=== PATIENT | female | born 1960 | race Caucasian/White ===

== ENCOUNTER 2016-06-03 15:38 | Emergency (ER) | payer BC ==
[~2016-06-03] VITALS: Ht 167.6 cm; Wt 78.8 kg
[~2016-06-03 15:38] MED LIST: ALBUAER19 INH; ASPEC325 PO; FLUT0.0529 NAE; HYDR-5688 PO; ONDA8TAB7 PO; OXYSR10 PO; ZYRTEC OTC PO
[2016-06-03 15:48] VITALS: Ht 167.6 cm; Wt 78.8 kg
[2016-06-03] MEDS ORDERED: RABIES VACCINE (IMOVAX) HUMAN DIPL CELL 2.5 INTER.UNIT/ML SYR IM. ONE (16:45)
[2016-06-03 17:24] VITALS: BP 152/101; PULSE 84; TEMP 36.5; O2SAT 97
--- NOTE | 2016-06-03 21:35 | EMERGENCY ROOM VISIT NOTE ---
ED Visit Note First contact with patient: 16:19 Chief complaint: Rabies exposure HPI: This 55-year-old white female presents for evaluation of rabies exposure. She has a chicken coop and states there was a raccoon within the chicken coop. It did kill a chicken as well as damaged many eggs. She skidded out of the chicken coop and later trapped the animal. It was dispatched by the [employer] and tested. She was notified that it was positive for rabies. This was 6 days ago. She was recommended to have vaccination and reports today for this. Her daughter accompanies her today with the same exposure. Patient denies any symptoms. No other complaints. Review of systems: REVIEW OF SYSTEM: HEENT: No dizziness, visual problems, hearing loss, or tinnitus. There is no difficulty swallowing and no oral lesions are present. PULMONARY: No cough, shortness of breath, sputum production or hemoptysis. CARDIOVASCULAR: No chest pain, palpitations, shortness of breath or peripheral edema. GASTROINTESTINAL: No diarrhea, constipation, nausea, vomiting, or abdominal pain. GENITOURINARY: No dysuria, frequency, urgency or nocturia. NEUROLOGIC: No weakness, muscle tenderness, epilepsy or history of neurological problems. No history of chronic headaches. MUSCULOSKELETAL: No history of joint tenderness/swelling. Positive history of arthritis and arthralgias. SKIN: No rashes or lesions. PSYCHIATRIC: No history of depression or mental illness. ENDOCRINE: No history of diabetes or abnormal hair growth. Surgical history: None Medical history: Significant for osteoarthritis, hypothyroidism, asthma Family history: Noncontributory. Current medications: Filed in patient's chart Allergies: Keflex Social history: Employed. No tobacco use. Vitals: Afebrile. Reviewed and filed in patient's chart General: Well-developed, well-nourished, middle-aged white female, in no acute distress. She is sitting on a bed. Alert and oriented. Skin:Warm and dry with good turgor. No rashes or lesions. No ecchymosis or erythema. The patient is not diaphoretic. No abrasions. She does have some dry cracks and fissures on her fingers. Musculoskeletal: Full motion of the upper extremities without discomfort. Impression: Rabies exposure. Plan: Patient was educated regarding today's findings. Our pharmacy has run out of HRIG due to multiple first exposures yesterday and today. No additional medication is available till Sunday. Her last day for the 7 day window for HRIG is tomorrow. I did call [facility] and they do have the immunoglobulin available. Perception was provided for the patient to receive administration there. They were given Imovax 1 ML IM here. Patient was monitored for 20 minutes. No adverse changes were noted. Patient was discharged with instructions to follow-up at the next scheduled injection. Tylenol as needed for any discomfort. Benadryl as needed for any itch. Return to the ER for any signs of allergic reaction. Current/Historical Medications Scheduled Amlodipine (Norvasc), 5 MG PO DAILY Aspirin (Aspirin Ec), 81 MG PO DAILY Gabapentin (Neurontin), 900 MG PO TID Hydrochlorothiazide (Hctz), 25 MG PO DAILY Hydrocodone/Acetaminophen 5MG/325MG ([place] 5MG/325MG), 1 TABLET PO HS Levothyroxine Sodium (Synthroid), 125 MCG PO DAILY Lisinopril (Zestril), 20 MG PO DAILY Meloxicam (Mobic), 15 MG PO DAILY Multiple Vitamin (Multivitamin), 1 TAB PO DAILY Nortriptyline Hcl (Pamelor), 100 MG PO HS Scheduled PRN Albuterol Inhaler (Ventolin Inhaler), 2 PUFFS INH QID PRN for SOB/Wheezing Cetirizine (Zyrtec), 10 MG PO DAILY PRN for Allergy Symptoms Fluticasone Propionate (Nasal) (Flonase), 2 SPRAYS KELSEY DAILY PRN for Allergy Symptoms Allergies Coded Allergies: Cephalexin (Verified Allergy, Intermediate, RASH, 07/18/13) Vital Signs Date Time Temp Pulse Resp B/P Pulse Ox O2 Delivery O2 Flow Rate FiO2 06/03/16 17:24 36.5 84 18 152/101 97 06/03/16 17:11 84 18 152/101 97 Room Air 06/03/16 15:48 36.5 95 18 156/95 97 Room Air Medications Administered Medications (Trade) Dose Ordered Sig/Oly Route Start Time Stop Time Status Last Admin Dose Admin Rabies Vaccine Human Diploid Cell (Imovax Rabies) 2.5 interunit ONCE ONCE IM. 06/03/16 16:45 06/03/16 16:46 DC 06/03/16 17:04 2.5 INTERUNIT Departure Information Impression Primary Impression: Rabies exposure Dispostion Home / Self-Care Condition GOOD Forms WORK / SCHOOL INSTRUCTIONS, HOME CARE DOCUMENTATION FORM, MOTRIN USE, TYLENOL USE, IMPORTANT VISIT INFORMATION Patient Instructions My [facility], Rabies Immune Globulin Human Solution for injection Additional Instructions return on Jun 06, , and Jun 24, for Imovax injections. follow up with your PCP as needed. Tylenol and Motrin every 6 hours as needed for mild discomfort/soreness
[2016-06-17] MEDS ORDERED: LISI-725 PO (12:08)
[2016-06-17] MEDS ORDERED: LEVO125T72 PO (12:08)
[2016-06-17] MEDS ORDERED: MULTTAB58 PO (12:08)
[2016-06-17] MEDS ORDERED: MELO15TA4 PO (12:08)
[2016-06-17] MEDS ORDERED: AMLO-110 PO (12:08)
[2016-06-17] MEDS ORDERED: HYDR25TA4 PO (12:08)
[2016-06-17] MEDS ORDERED: VNTHFA/IN INH (12:10)
[2016-06-17] MEDS ORDERED: FLUT0.15 NAE (12:10)
== END 2016-06-03 17:25 | disposition home or self-care (01) ==
LOC: C.EDB 15:39 → C.EDD 17:25
DX: Z20.3 Contact with and (suspected) exposure to rabies (principal); E03.9 Hypothyroidism, unspecified; J45.909 Unspecified asthma, uncomplicated; Z79.899 Other long term (current) drug therapy; Z79.82 Long term (current) use of aspirin

== ENCOUNTER 2016-06-06 11:55 | Emergency (ER) | payer BC ==
[~2016-06-06] VITALS: Ht 168.9 cm; Wt 79.2 kg
[~2016-06-06 11:55] MED LIST changes: -ASPEC325 PO; -HYDR-5688 PO; -ONDA8TAB7 PO; -OXYSR10 PO; -ZYRTEC OTC PO
[2016-06-06 11:59] VITALS: BP 140/83; PULSE 87; TEMP 36.7; O2SAT 97; Ht 168.9 cm; Wt 79.2 kg
[2016-06-06] MEDS ORDERED: RABIES VACCINE (IMOVAX) HUMAN DIPL CELL 2.5 INTER.UNIT/ML SYR IM. ONE (12:30)
--- NOTE | 2016-06-06 12:38 | EMERGENCY ROOM VISIT NOTE ---
ED Visit Note First contact with patient: 12:08 Chief Complaint: Rabies Return Visit History of Present Illness: This patient is a 55-year-old female who presents to the Emergency Department ambulatory for their second Rabies Vaccination Injections. The patient reports that they had no reaction to previous injection. Patient denies the development of any fevers, chills, sweats, or URI symptoms. The patient states that she was not able to receive the immunoglobulin at this facility at her last visit, but she did go to the [facility] later that day and received the immunoglobulin. Medications: Unchanged from previous visit. Allergies: Cephalexin PMH: Unchanged from previous visit. SHx: The patient lives locally with family. ROS: All pertinent positive and negative review of systems are appropriately documented in the History of Present Illness. Physical Exam: VITAL SIGNS - Vital signs and Nursing Notes were reviewed. GENERAL -this is a 55-year-old female, well-developed, well-nourished, and in no acute distress. SKIN - Without rashes or lesions. CARDIAC - RRR with normal S1 & S2. No murmurs, rubs, or gallops appreciated. RESPIRATORY - Clear to auscultation bilaterally. No wheezes, rales, or rhonchi appreciated. NEURO - Patient is A&Ox3 and communicates appropriately with the provider. ED Course: Previous ED visit note was reviewed by myself prior to patient evaluation. I did confirm that the patient was here on the appropriate day. Patient reports no reaction to the previous injection(s). Patient received 2.5 units of Imovax intramuscularly. Patient was observed in the Emergency Department for greater than 20 minutes prior to discharge without signs of reaction. Patient was educated on worrisome symptoms for return visit to the Emergency Department. Patient discharged to home with the intent for follow-up in the Emergency Department as scheduled for the remainder of their injections. Impression: Rabies Prophylaxis Discharge Instructions: You were seen in the Emergency Department today for your Rabies Prophylaxis Injection. You should continue to follow the Discharge Instructions outlined for you in your initial Emergency Department visit. For pain or fever control, you can use the following nktv-pnz-rckwiot medicines (if >12 yo): - Regular strength (325mg/tab) Tylenol (acetaminophen) 2 tabs every 4-6 hours as needed. Do not exceed 12 tablets in a 24 hour period. Avoid taking more than 4 grams (4000 mg) of Tylenol per day. This includes any other sources of acetaminophen you may take on a regular basis. - Regular strength (200 mg/tab) Advil (ibuprofen) 1-2 tabs every 4-6 hours as needed. Do not exceed a dose of 3200 mg per day. Return to the emergency department if your symptoms worsen despite treatment course outlined above. Current/Historical Medications Scheduled Albuterol Hfa (Ventolin Hfa), 2-4 PUFFS INH Q6H Amlodipine (Norvasc), 5 MG PO DAILY Aspirin (Aspirin Ec), 81 MG PO DAILY Gabapentin (Neurontin), 900 MG PO TID Hydrochlorothiazide (Hctz), 25 MG PO DAILY Hydrocodone/Acetaminophen 5MG/325MG ([place] 5MG/325MG), 1 TABLET PO HS Levothyroxine Sodium (Synthroid), 125 MCG PO DAILY Lisinopril (Zestril), 20 MG PO DAILY Meloxicam (Mobic), 15 MG PO DAILY Multiple Vitamin (Multivitamin), 1 TAB PO DAILY Nortriptyline Hcl (Pamelor), 100 MG PO HS Scheduled PRN Cetirizine (Zyrtec), 10 MG PO DAILY PRN for Allergy Symptoms Miscellaneous Medications Fluticasone Propionate (Nasal) (Flonase Allergy Relief) Allergies Coded Allergies: Cephalexin (Verified Allergy, Intermediate, RASH, 06/06/16) Vital Signs Date Time Temp Pulse Resp B/P Pulse Ox O2 Delivery O2 Flow Rate FiO2 06/06/16 11:59 36.7 87 17 140/83 97 Room Air Medications Administered Medications (Trade) Dose Ordered Sig/Oly Route Start Time Stop Time Status Last Admin Dose Admin Rabies Vaccine Human Diploid Cell (Imovax Rabies) 2.5 interunit ONCE ONCE IM. 06/06/16 12:30 06/06/16 12:31 DC 06/06/16 12:44 2.5 INTERUNIT Departure Information Impression Primary Impression: Rabies, need for prophylactic vaccination against Dispostion Home / Self-Care Condition GOOD Referrals RV. Mullins MD (PCP) Patient Instructions My [facility] Additional Instructions You were seen in the Emergency Department today for your Rabies Prophylaxis Injection. You should continue to follow the Discharge Instructions outlined for you in your initial Emergency Department visit. For pain or fever control, you can use the following bycz-gjd-[id number] medicines (if >12 yo): - Regular strength (325mg/tab) Tylenol (acetaminophen) 2 tabs every 4-6 hours as needed. Do not exceed 12 tablets in a 24 hour period. Avoid taking more than 4 grams (4000 mg) of Tylenol per day. This includes any other sources of acetaminophen you may take on a regular basis. - Regular strength (200 mg/tab) Advil (ibuprofen) 1-2 tabs every 4-6 hours as needed. Do not exceed a dose of 3200 mg per day. Return to the emergency department if your symptoms worsen despite treatment course outlined above.
[2016-06-17] MEDS ORDERED: LISI-725 PO (12:08)
[2016-06-17] MEDS ORDERED: MELO15TA4 PO (12:08)
[2016-06-17] MEDS ORDERED: LEVO125T72 PO (12:08)
[2016-06-17] MEDS ORDERED: AMLO-110 PO (12:08)
[2016-06-17] MEDS ORDERED: MULTTAB58 PO (12:08)
[2016-06-17] MEDS ORDERED: HYDR25TA4 PO (12:08)
[2016-06-17] MEDS ORDERED: FLUT0.15 NAE (12:10)
[2016-06-17] MEDS ORDERED: VNTHFA/IN INH (12:10)
== END 2016-06-06 12:50 | disposition home or self-care (01) ==
LOC: C.EDB 11:57 → C.EDD 12:50
DX: Z23 Encounter for immunization (principal); Z20.3 Contact with and (suspected) exposure to rabies

== ENCOUNTER 2016-06-10 15:01 | Emergency (ER) | payer BC ==
[~2016-06-10] VITALS: Ht 167.6 cm; Wt 80.5 kg
[2016-06-10 15:05] VITALS: BP 133/84; PULSE 80; TEMP 36.6; O2SAT 99; Ht 167.6 cm; Wt 80.5 kg
--- NOTE | 2016-06-10 15:28 | EMERGENCY ROOM VISIT NOTE ---
ED Visit Note First contact with patient: 15:08 CHIEF COMPLAINT: Need third rabies vaccine HISTORY OF PRESENT ILLNESS: This 55-year-old female presents the ER for her third rabies vaccine. The patient was exposed to a chicken was killed by a rabid raccoon. The patient denied any problems with her prior vaccines. REVIEW OF SYSTEMS: 6 system review was performed and was negative unless stated otherwise in history of present illness. PMH: The patient is healthy; hypertension, hypothyroidism, peripheral neuropathy SOCIAL HISTORY: Patient denies any tobacco or alcohol use PHYSICAL EXAM: Vital Signs: Were reviewed Reviewed Nurse's notes. GEN.: 55-year -old female appears in no acute distress. MENTAL Status: Alert and oriented 3. EMERGENCY DEPARTMENT COURSE: The patient was evaluated. The patient was given Imovax IM. The patient was discharged home in stable condition DIAGNOSIS: Post exposure rabies prophylaxis DISCHARGE INSTRUCTIONS: Return to the ER in 7 days for final rabies vaccine Current/Historical Medications Scheduled Amlodipine (Norvasc), 5 MG PO DAILY Aspirin (Aspirin Ec), 81 MG PO DAILY Gabapentin (Neurontin), 900 MG PO TID Hydrochlorothiazide (Hctz), 25 MG PO DAILY Hydrocodone/Acetaminophen 5MG/325MG ([place] 5MG/325MG), 1 TABLET PO HS Levothyroxine Sodium (Synthroid), 125 MCG PO DAILY Lisinopril (Zestril), 20 MG PO DAILY Meloxicam (Mobic), 15 MG PO DAILY Multiple Vitamin (Multivitamin), 1 TAB PO DAILY Nortriptyline Hcl (Pamelor), 100 MG PO HS Scheduled PRN Albuterol Hfa (Ventolin Hfa), 2-4 PUFFS INH Q6H PRN for Shortness of Breath Cetirizine (Zyrtec), 10 MG PO DAILY PRN for Allergy Symptoms Miscellaneous Medications Fluticasone Propionate (Nasal) (Flonase Allergy Relief) Allergies Coded Allergies: Cephalexin (Verified Allergy, Intermediate, RASH, 06/06/16) Vital Signs Date Time Temp Pulse Resp B/P Pulse Ox O2 Delivery O2 Flow Rate FiO2 06/10/16 15:05 36.6 80 18 133/84 99 Departure Information Referrals RV. Mullins MD (PCP) Patient Instructions My [facility]
[2016-06-10] MEDS ORDERED: RABIES VACCINE (IMOVAX) HUMAN DIPL CELL 2.5 INTER.UNIT/ML SYR IM. ONE (15:30)
[2016-06-17] MEDS ORDERED: LEVO125T72 PO (12:08)
[2016-06-17] MEDS ORDERED: MELO15TA4 PO (12:08)
[2016-06-17] MEDS ORDERED: MULTTAB58 PO (12:08)
[2016-06-17] MEDS ORDERED: AMLO-110 PO (12:08)
[2016-06-17] MEDS ORDERED: HYDR25TA4 PO (12:08)
[2016-06-17] MEDS ORDERED: LISI-725 PO (12:08)
[2016-06-17] MEDS ORDERED: VNTHFA/IN INH (12:10)
[2016-06-17] MEDS ORDERED: FLUT0.15 NAE (12:10)
== END 2016-06-10 15:34 | disposition home or self-care (01) ==
LOC: C.EDB 15:02 → C.EDD 15:34
DX: Z23 Encounter for immunization (principal); Z20.3 Contact with and (suspected) exposure to rabies; I10 Essential (primary) hypertension; E03.9 Hypothyroidism, unspecified; Z79.82 Long term (current) use of aspirin; Z79.899 Other long term (current) drug therapy; Z88.8 Allergy status to other drugs, medicaments and biological substances

== ENCOUNTER 2016-06-17 15:43 | Emergency (ER) | payer BC ==
[~2016-06-17] VITALS: Ht 167.6 cm; Wt 79.7 kg
[~2016-06-17 15:43] MED LIST changes: -ALBUAER19 INH; +AMLO-110 PO; -FLUT0.0529 NAE; +FLUT0.15 NAE; +HYDR25TA4 PO; +LEVO125T72 PO; +LISI-725 PO; +MELO15TA4 PO; +MULTTAB58 PO; +VNTHFA/IN INH
[2016-06-17 15:45] VITALS: BP 150/94; PULSE 98; TEMP 36.5; O2SAT 97; Ht 167.6 cm; Wt 79.7 kg
[2016-06-17] MEDS ORDERED: RABIES VACCINE (IMOVAX) HUMAN DIPL CELL 2.5 INTER.UNIT/ML SYR IM. ONE (16:00)
--- NOTE | 2016-06-17 16:13 | EMERGENCY ROOM VISIT NOTE ---
ED Visit Note First contact with patient: 15:47 Chief Complaint: Rabies Return Visit History of Present Illness: This patient is a 55-year-old female who presents to the Emergency Department ambulatory for their fourth and final Rabies Vaccination Injections. The patient reports that they had no reaction to previous injection. Patient denies the development of any fevers, chills, sweats, or URI symptoms. Medications: Unchanged from previous visit. Allergies: Cephalexin PMH: Unchanged from previous visit. SHx: The patient lives locally with family. ROS: All pertinent positive and negative review of systems are appropriately documented in the History of Present Illness. Physical Exam: VITAL SIGNS - Vital signs and Nursing Notes were reviewed. GENERAL -this is a 55-year-old female, well-developed, well-nourished, and in no acute distress. SKIN - Without rashes or lesions. CARDIAC - RRR with normal S1 & S2. No murmurs, rubs, or gallops appreciated. RESPIRATORY - Clear to auscultation bilaterally. No wheezes, rales, or rhonchi appreciated. NEURO - Patient is A&Ox3 and communicates appropriately with the provider. ED Course: Previous ED visit note was reviewed by myself prior to patient evaluation. Patient reports no reaction to the previous injection(s). Patient received 2.5 units of Imovax intramuscularly. Patient was observed in the Emergency Department for greater than 20 minutes prior to discharge without signs of reaction. Patient was educated on worrisome symptoms for return visit to the Emergency Department. Patient discharged to home with the intent for follow-up in the Emergency Department as scheduled for the remainder of their injections. Impression: Rabies Prophylaxis Discharge Instructions: You were seen in the Emergency Department today for your final Rabies Prophylaxis Injection. For pain or fever control, you can use the following hmrl-nfj-ocwxmla medicines (if >12 yo): - Regular strength (325mg/tab) Tylenol (acetaminophen) 2 tabs every 4-6 hours as needed. Do not exceed 12 tablets in a 24 hour period. Avoid taking more than 4 grams (4000 mg) of Tylenol per day. This includes any other sources of acetaminophen you may take on a regular basis. - Regular strength (200 mg/tab) Advil (ibuprofen) 1-2 tabs every 4-6 hours as needed. Do not exceed a dose of 3200 mg per day. Return to the emergency department if your symptoms worsen despite treatment course outlined above. Current/Historical Medications Scheduled Amlodipine (Norvasc), 5 MG PO DAILY Aspirin (Aspirin Ec), 81 MG PO DAILY Gabapentin (Neurontin), 900 MG PO TID Hydrochlorothiazide (Hctz), 25 MG PO DAILY Hydrocodone/Acetaminophen 5MG/325MG ([place] 5MG/325MG), 1 TABLET PO HS Levothyroxine Sodium (Synthroid), 125 MCG PO DAILY Lisinopril (Zestril), 20 MG PO DAILY Meloxicam (Mobic), 15 MG PO DAILY Multiple Vitamin (Multivitamin), 1 TAB PO DAILY Nortriptyline Hcl (Pamelor), 100 MG PO HS Scheduled PRN Albuterol Hfa (Ventolin Hfa), 2-4 PUFFS INH Q6H PRN for Shortness of Breath Cetirizine (Zyrtec), 10 MG PO DAILY PRN for Allergy Symptoms Miscellaneous Medications Fluticasone Propionate (Nasal) (Flonase Allergy Relief) Allergies Coded Allergies: Cephalexin (Verified Allergy, Intermediate, RASH, 06/06/16) Vital Signs Date Time Temp Pulse Resp B/P Pulse Ox O2 Delivery O2 Flow Rate FiO2 06/17/16 15:45 36.5 98 18 150/94 97 Room Air Departure Information Impression Primary Impression: Rabies, need for prophylactic vaccination against Dispostion Home / Self-Care Condition GOOD Referrals RV. Mullins MD (PCP) Forms WORK / SCHOOL INSTRUCTIONS, HOME CARE DOCUMENTATION FORM, IMPORTANT VISIT INFORMATION Patient Instructions My [facility] Additional Instructions You were seen in the Emergency Department today for your final Rabies Prophylaxis Injection. For pain or fever control, you can use the following clxd-yhy-gojwfxv medicines (if >12 yo): - Regular strength (325mg/tab) Tylenol (acetaminophen) 2 tabs every 4-6 hours as needed. Do not exceed 12 tablets in a 24 hour period. Avoid taking more than 4 grams (4000 mg) of Tylenol per day. This includes any other sources of acetaminophen you may take on a regular basis. - Regular strength (200 mg/tab) Advil (ibuprofen) 1-2 tabs every 4-6 hours as needed. Do not exceed a dose of 3200 mg per day. Return to the emergency department if your symptoms worsen despite treatment course outlined above.
[2016-06-17] MEDS ORDERED: CETI10TA84 PO (16:34)
[2016-06-17] MEDS ORDERED: HYDR-5688 PO (16:34)
[2016-06-17] MEDS ORDERED: ASPI81TA28 PO (16:34)
[2016-06-17] MEDS ORDERED: NORT50CA PO (16:35)
[2016-06-17] MEDS ORDERED: NRN/600 PO (16:35)
== END 2016-06-17 16:21 | disposition home or self-care (01) ==
LOC: C.EDB 15:43 → C.EDD 16:21
DX: Z23 Encounter for immunization (principal); Z20.3 Contact with and (suspected) exposure to rabies

== ENCOUNTER → 2016-06-21 | Outpatient (CLI) | payer BC ==
[~2016-06-21] MED LIST changes: +ASPI81TA28 PO; +CETI10TA84 PO; +HYDR-5688 PO; +NORT50CA PO; +NRN/600 PO
== END | disposition home or self-care (01) ==
LOC: C.LAB1850 11:04
PROVIDERS: ATTEND Internal Medicine
DX: E03.9 Hypothyroidism, unspecified (principal)

== ENCOUNTER → 2016-07-04 | Outpatient (CLI) | payer BC | END | disposition home or self-care (01) | LOC: C.PAPS 09:27 | PROVIDERS: ATTEND Obstetrics & Gynecology | DX: Z01.419 Encounter for gynecological examination (general) (routine) without abnormal findings (principal) ==

== ENCOUNTER → 2017-07-11 | Outpatient (CLI) | payer BC ==
[~2017-07-11] MED LIST changes: +MELO-84 PO; -MELO15TA4 PO
--- NOTE | 2017-07-12 14:04 | MAMMOGRAPHY REPORT ---
BILATERAL DIGITAL SCREENING MAMMOGRAM TOMOSYNTHESIS WITH CAD: 07/11/2017 CLINICAL HISTORY: Routine screening. Patient has no complaints. TECHNIQUE: Breast tomosynthesis in addition to standard 2D mammography was performed. Current study was also evaluated with a Computer Aided Detection (CAD) system. COMPARISON: Comparison is made to exams dated: 05/09/2016 mammogram, 05/06/2015 mammogram, 03/27/2014 mammogram, 08/05/2013 mammogram - [facility], 01/06/2013 mammogram, and 06/14/2011 ma mmogram. BREAST COMPOSITION: There are scattered areas of fibroglandular density in both breasts. FINDINGS: No suspicious mass, architectural distortion or cluster of microcalcifications is seen. IMPRESSION: ACR BI-RADS CATEGORY 1: NEGATIVE There is no mammographic evidence of malignancy. A 1 year screening mammogram is recommended. The pa tient will receive written notification of the results. Approximately 10% of breast cancers are not detected with mammography. A negative mammographic report should not delay biopsy if a clinically suggestive mass is present. Danica malik/terence:07/11/2017 16:06:32 Kitchen Help Handyman: Dayana Yost, [facility] letter sent: Normal 1/2 BI-RADS Code: ACR BI-RADS Category 1: Negative
== END | disposition home or self-care (01) ==
LOC: C.MAMM 15:16
PROVIDERS: ATTEND Family Medicine
DX: Z12.31 Encounter for screening mammogram for malignant neoplasm of breast (principal)